=== PATIENT | female | born 1935 | race Caucasian/White ===

== ENCOUNTER 2016-10-08 07:03 | Outpatient (CLI) | payer MEDICARE, OTHER ==
[2016-10-08 07:51] LABS: eGFR (African) > 60; eGFR (Non-African) > 60
--- NOTE | 2016-10-08 23:51 | Diagnostic Imaging Report ---
KARRI CHOWDARY~ [facility] [address] [facility] [address] [address] ~ ~ ~ ~ Report Submission Date: Oct 08, 2016 9:25:47 AM CDT Patient ~ Study Name: TACHO TEMPLETON ~ Date: Oct 08, 2016 7:15:08 AM CDT MRN: [id number] ~ Modality Type: CR Gender: F ~ Description: CHEST : 37 ~ Institution: [facility] Physician: KARRI CHOWDARY ~ ~ ~ ~ Examination: PA and lateral chest. History: Evaluate lung arshad. Findings: PA lateral chest demonstrate a normal cardiac silhouette. No focal infiltrate.~ No effusion.~ No blunting of the costophrenic margins.~ Large mediastinal calcified lymph node. Osseous structures demonstrate significant S shaped scoliotic curvature. Impression: No acute pulmonary process. Significant thoracolumbar scoliotic curvature. ~ Electronically signed on Oct 08, 2016 9:25:47 AM CDT by: Emile DENNEY
== END 2016-10-08 07:04 ==
LOC: LAB 07:03
PROVIDERS: ATTEND Family Medicine
DX: E78.2 Mixed hyperlipidemia (principal); E03.9 Hypothyroidism, unspecified; R06.09 Other forms of dyspnea
CPT/HCPCS: 36415; 71020; 80053; 80061; 84443

== ENCOUNTER 2017-01-06 13:36 | Outpatient (CLI) | payer MEDICARE, OTHER | END 2017-01-06 13:37 | LOC: LAB 13:36 | PROVIDERS: ATTEND Family Medicine | DX: E03.9 Hypothyroidism, unspecified (principal) | CPT/HCPCS: 36415; 84443 ==

== ENCOUNTER 2017-06-16 17:16 | Outpatient (CLI) | payer MEDICARE, OTHER | END 2017-06-16 17:17 | LOC: LABRHC 17:16 | PROVIDERS: ATTEND Physician Assistant | DX: R30.0 Dysuria (principal) | CPT/HCPCS: 87086 ==

== ENCOUNTER 2017-07-01 10:31 | Outpatient (CLI) | payer MEDICARE, OTHER | END 2017-07-01 10:35 | LOC: LABRHC 10:31 | PROVIDERS: ATTEND Physician Assistant | DX: R30.0 Dysuria (principal) | CPT/HCPCS: 87086 ==

== ENCOUNTER 2017-09-05 14:56 | Outpatient (CLI) | payer MEDICARE, OTHER ==
[2017-09-05 15:10] LABS: MEAN CORPUSCULAR HEMOGLOBIN 30.3 pg (28.0-34.0); MEAN CORPUSCULAR VOLUME 94.4 fl (80.0-100.0)
[2017-09-05 15:29] LABS: eGFR (African) > 60; eGFR (Non-African) > 60
== END 2017-09-05 14:58 ==
LOC: LAB 14:56
PROVIDERS: ATTEND Family Medicine
DX: R73.9 Hyperglycemia, unspecified (principal); E03.9 Hypothyroidism, unspecified; R42 Dizziness and giddiness
CPT/HCPCS: 36415; 80048; 83036; 84443; 85027

== ENCOUNTER 2017-11-02 08:19 | Outpatient (CLI) | payer MEDICARE, OTHER ==
[2017-11-02 11:04] LABS: TOTAL PROTEIN 6.1 g/dL (6.0-8.5)
== END 2017-11-02 08:20 ==
LOC: LAB 08:19
PROVIDERS: ATTEND Family Medicine
DX: E03.9 Hypothyroidism, unspecified (principal); E78.00 Pure hypercholesterolemia, unspecified
CPT/HCPCS: 80053; 80061; 84443

== ENCOUNTER 2017-12-07 10:02 | Outpatient (CLI) | payer MEDICARE, OTHER | END 2017-12-07 10:03 | LOC: RAD 10:02 | PROVIDERS: ATTEND Family Medicine | DX: Z78.0 Asymptomatic menopausal state (principal) | CPT/HCPCS: 77080 ==

== ENCOUNTER 2017-12-26 10:05 | Outpatient (CLI) | payer MEDICARE, OTHER | END 2017-12-26 10:07 | LOC: LAB 10:05 | PROVIDERS: ATTEND Family Medicine | DX: E03.9 Hypothyroidism, unspecified (principal) | CPT/HCPCS: 84443 ==

== ENCOUNTER 2018-09-11 12:40 | Outpatient (CLI) | payer MEDICARE, OTHER ==
[2018-09-20 15:28] LABS: TOTAL PROTEIN SCANNED REPORT
== END 2018-09-11 12:45 | disposition home or self-care (01) ==
LOC: LAB 12:40
PROVIDERS: ATTEND Podiatrist Foot & Ankle Surgery
DX: B35.1 Tinea unguium (principal)
CPT/HCPCS: 36415; 80076

== ENCOUNTER 2018-11-02 12:02 | Outpatient (CLI) | payer MEDICARE, OTHER | END 2018-11-02 12:04 | LOC: LAB 12:02 | PROVIDERS: ATTEND Podiatrist Foot & Ankle Surgery | DX: B35.1 Tinea unguium (principal) | CPT/HCPCS: 80076 ==

== ENCOUNTER 2019-02-14 10:39 | Outpatient (CLI) | payer MEDICARE, OTHER ==
[2019-02-14 12:12] LABS: HDL 49 mg/dL (>40); eGFR (Non-African) > 60
== END 2019-02-14 10:44 ==
LOC: LAB 10:39
PROVIDERS: ATTEND Family Medicine
DX: E03.9 Hypothyroidism, unspecified (principal); E78.00 Pure hypercholesterolemia, unspecified
CPT/HCPCS: 36415; 80053; 80061; 84443